=== PATIENT | female | born 1955 ===

== ENCOUNTER 2018-11-19 11:15 | Day surgery (SDC) | payer OTHER ==
[~2018-11-19] VITALS: Ht 180.3 cm; Wt 82.0 kg
[~2018-11-19 11:15] MED LIST: ALPR.5 PO; Allergy Medicat25 MG PO; MEGARED OMEGA-1 EAC1 PO; ROPI1 PO
[2018-11-19] MEDS ORDERED: MECL12.5 PO (11:41)
[2018-11-19] MEDS ORDERED: POTASSIUM99 MG (11:42)
--- NOTE | 2018-11-19 16:11 | NUR ---
PT LEFT GROIN SITE REMAINS STABLE, SOFT NON-TENDER, NO OOZING OR BLEEDING FROM SITE. CLEAR TEGADERM INTACT. PT VERBALIZED UNDERSTANDING OF D/C INSTRUCTIONS. IV REMOVED FROM RIGHT HAND WITH CATH INTACT. PRESSURE DRESSING APPLIED. PT GETS DRESSED WITH NO NEEDED ASSISTANCE. FRIEND ARRIVES TO DRIVE HER HOME. PAPERWORK PROVIDED IN DISCHARGE SECTION OF [facility]. PT TAKEN OUT TO VEHICLE VIA W/C WITH NADN. LEANNES.
[2018-11-25] MEDS ORDERED: CLEM1.34 PO (14:35)
== END 2018-11-19 16:15 | disposition home or self-care (01) ==
LOC: MHTC 11:15
DX: I70.201 Unspecified atherosclerosis of native arteries of extremities, right leg (principal); I10 Essential (primary) hypertension; F17.210 Nicotine dependence, cigarettes, uncomplicated
CPT/HCPCS: 37224; 37228; 75625; 75716; 75774; 99152; 99153; C1725; C1760; C1769; C1887; C1894; C2623; J1644; J2250; J2405; J3010; J7030; Q9967

== ENCOUNTER 2018-11-26 06:46 | Day surgery (SDC) | payer OTHER ==
[~2018-11-26] VITALS: Ht 180.3 cm; Wt 80.5 kg
[~2018-11-26 06:46] MED LIST changes: +CLEM1.34 PO; +MECL12.5 PO; +POTASSIUM99 MG
--- NOTE | 2018-11-26 09:18 | NUR ---
PT TO RECOVERY ROOM VIA BED POST PROCEDURE. REPORT FROM HERBER DILLARD. PT SLEEPING, VSS. CALL LIGHT IN REACH. RIGHT GROIN SITE SOFT, CDI, NO SWELLING NOTED.
--- NOTE | 2018-11-26 11:45 | NUR ---
PT AMBULATED TO THE BATHROOM WITHOUT DIIFCULTY. RIGHT GROIN SITE REMAINS CDI WITHOUT SWELLING OR PAIN WHILE AMBULATING.
--- NOTE | 2018-11-26 12:15 | NUR ---
IV DC'D, CATH INTACT. PT AND SISTER VERBALIZED UNDERSTANDING OF DC INSTRUCTIONS AND FOLLOW UP INFORMATION. RIGHT GROIN CDI, NO BRUISING OR SWELLING NOTED AT TIME OF DC HOME. OUT TO CAR VIA W/C.
== END 2018-11-26 14:04 | disposition home or self-care (01) ==
LOC: MHTC 06:46
DX: I70.202 Unspecified atherosclerosis of native arteries of extremities, left leg (principal); F17.210 Nicotine dependence, cigarettes, uncomplicated; G25.81 Restless legs syndrome; I10 Essential (primary) hypertension
CPT/HCPCS: 37225; 75716; 75774; 85347; 99152; 99153; C1714; C1760; C1769; C1884; C1887; C1894; C2623; J1644; J2250; J2405; J3010; J7030; Q9967

== ENCOUNTER 2019-04-16 10:52 | Day surgery (SDC) | payer OTHER ==
[~2019-04-16] VITALS: Ht 180.3 cm; Wt 82.8 kg
[~2019-04-16 10:52] MED LIST changes: +BENADRYL25 MG PO; +MOTION RELIEF25 MG PO; +Ropinirole HC0.25 MG PO; +[UNRECOGNIZED DRUG - OTHER] PO
--- NOTE | 2019-04-16 15:25 | NUR ---
04/16/19 1525 Jacek Riggins S LATE ENTRY-1425 PATIENT STATES SHE IS STILL DIZZY AND WOULD LIKE TO WAIT A FEW MORE MINUTES TO WAKE UP. DENIES PAIN, N/V AT THIS TIME. VSS
== END 2019-04-16 15:10 | disposition home or self-care (01) ==
LOC: ORSCSDS 10:52
PROVIDERS: Internal Medicine Gastroenterology
PROC: 0DBK8ZX Excision of Ascending Colon, Via Natural or Artificial Opening Endoscopic, Diagnostic (ICD-10-PCS; principal; 2019-04-16 12:00)
PROC: 0DBL8ZX Excision of Transverse Colon, Via Natural or Artificial Opening Endoscopic, Diagnostic (ICD-10-PCS; principal; 2019-04-16 12:00)
PROC: 0DBN8ZX Excision of Sigmoid Colon, Via Natural or Artificial Opening Endoscopic, Diagnostic (ICD-10-PCS; principal; 2019-04-16 12:00)
DX: Z12.11 Encounter for screening for malignant neoplasm of colon (principal); Z86.010 Personal history of colon polyps; Z80.0 Family history of malignant neoplasm of digestive organs; D12.3 Benign neoplasm of transverse colon; D12.2 Benign neoplasm of ascending colon; K63.5 Polyp of colon; K57.30 Diverticulosis of large intestine without perforation or abscess without bleeding; F17.210 Nicotine dependence, cigarettes, uncomplicated; Z79.899 Other long term (current) drug therapy
CPT/HCPCS: 88305; J2250; J3010; J7120

== ENCOUNTER 2019-08-08 06:32 | Day surgery (SDC) | payer OTHER ==
[~2019-08-08] VITALS: Ht 180.3 cm; Wt 83.0 kg
[~2019-08-08 06:32] MED LIST changes: +XARELTO10 MG PO
--- NOTE | 2019-08-08 11:52 | NUR ---
PT TOLERATES PORTILLO CATHETER PLACEMENT WELL. NADN. VSS. SITE REMAINS STABLE. CALL LIGHT WITHIN REACH.
--- NOTE | 2019-08-08 11:55 | NUR ---
DR. MINER HERE. ORDERS NOTED. PT NOT TOLERATING FENTANYL IV.
--- NOTE | 2019-08-08 13:03 | NUR ---
ZOFRAN 4 MG IV GIVEN FOR NAUSEA.
--- NOTE | 2019-08-08 13:17 | NUR ---
PT RESTING COMFORTABLY.
--- NOTE | 2019-08-08 13:45 | NUR ---
DR. MINER HERE. DOPPLER PULS NOW PRESENT DP/PT LEFT FOOT. TOES ARE PURPLE AND FOOT IS COOL SINCE POST PROCEDURE.
--- NOTE | 2019-08-08 14:00 | NUR ---
ADDITIONAL 100 ML TPA HUNG. INFUSING AT 25 ML/HR= 2MG/HR.
--- NOTE | 2019-08-08 14:16 | NUR ---
FENTANYL 50 MCG IV GEIVEN FOR 10/10 LEFT LEG PAIN
--- NOTE | 2019-08-08 15:15 | NUR ---
FENTANYL 25 MCG IV GIVEN FOR 10/10 LEFT LEG/CALF PAIN.
--- NOTE | 2019-08-08 15:15 | NUR ---
DP PULSE ABSENT WITH DOPPLER.PT DOPPLER PULSE PRESENT. INFORMATION GIVEN TO DR. MINER.
--- NOTE | 2019-08-08 15:35 | NUR ---
PATIENT RETURNED TO REFRIGERATED CARGO CLERK. REPORT GIVEN TO NISHANT VERDUZCO RN AND BENITO CASH RN.
--- NOTE | 2019-08-08 16:28 | NUR ---
pt returned from scientific laboratory supervisor with angioseal device in place. site stable at this time r fem.
--- NOTE | 2019-08-08 19:09 | NUR ---
PORTILLO CATHETER REMOVED, PT DRESSED, IV DC'D INTACT, PT WILL BE DC'D BY KINA Rdz FAMILY DRIVING PT HOME
--- NOTE | 2019-08-08 19:16 | NUR ---
PT DC'D BY KINA
== END 2019-08-08 19:15 | disposition home or self-care (01) ==
LOC: MHTC 06:32
DX: I70.212 Atherosclerosis of native arteries of extremities with intermittent claudication, left leg (principal); F17.210 Nicotine dependence, cigarettes, uncomplicated; F41.9 Anxiety disorder, unspecified; Z88.2 Allergy status to sulfonamides; Z88.5 Allergy status to narcotic agent; Z88.8 Allergy status to other drugs, medicaments and biological substances; Z79.899 Other long term (current) drug therapy
CPT/HCPCS: 37186; 37211; 37226; 37228; 37232; 75716; 75774; 99152; 99153; C1725; C1760; C1769; C1874; C1876; C1887; C1894; J1644; J2250; J2405; J2997; J3010; J7030; Q9967

== ENCOUNTER 2019-09-06 11:46 | Emergency (ER) | payer OTHER ==
[~2019-09-06] VITALS: Ht 180.3 cm; Wt 81.7 kg
[2019-09-06 12:30] LABS: BASOPHILS ABSOLUTE AUTO 0.04 K/mm3 (0.00-0.23); BASOPHILS PERCENT AUTO 1 % (0-2); EOSINOPHILS ABSOLUTE AUTO 0.07 K/mm3 (0.00-0.68); EOSINOPHILS PERCENT AUTO 1 % (0-6); Hematocrit 46.6 % (33.0-51.0); Hemoglobin 15.5 g/dL (11.5-16.0); IMMATURE GRAN ABSOLUTE AUTO 0.04 K/mm3 (0.00-0.10); IMMATURE GRAN PERCENT AUTO 1 % (0-1); LYMPHOCYTES ABSOLUTE AUTO 2.92 K/mm3 (0.84-5.20); LYMPHOCYTES PERCENT AUTO 34 % (21-46); MONOCYTES ABSOLUTE AUTO 0.56 K/mm3 (0.16-1.47); MONOCYTES PERCENT AUTO 7 % (4-13); Mean Corpuscular HGB 29.9 pg (26.0-34.0); Mean Corpuscular HGB Conc 33.3 g/dL (31.5-36.5); Mean Corpuscular Volume 90 fL (80-100); Mean Platelet Volume 9.8 fL (9.1-12.4); NEUTROPHILS PERCENT AUTO 58 % (41-73); Platelet Count 264 K/mm3 (150-400); RDW Coefficient Variation 13.9 % (11.7-14.2); RDW Standard Deviation 44.6 fL (35.1-46.3); Red Blood Cell Count 5.18 M/mm3 (3.80-5.20); White Blood Cell Count 8.63 K/mm3 (4.00-11.30)
[2019-09-06 12:50] LABS: Alanine Aminotransfer (ALT/SGP 57 U/L (12-78); Albumin, Blood 3.9 g/dL (3.4-5.0); Albumin/Globulin Ratio 0.9 (0.8-1.8); Alk Phos 85 U/L (50-136); Anion Gap 7 mmol/L (6-16); Aspartate Aminotrans (AST/SGOT 26 U/L (12-37); Bilirubin, Total 0.4 mg/dL (0.1-1.0); Blood Urea Nitrogen 15 mg/dL (8-24); CO2, Blood 26 mmol/L (21-32); Calcium, Blood 10.3 mg/dL (8.5-10.1); Chloride, Blood 107 mmol/L (98-108); Creatinine, Blood 0.58 mg/dL (0.40-1.00); Globulin, Blood 4.4 g/dL (2.2-4.0); Glomerular Filtration Rate >60 (60-); Glucose, Blood 105 mg/dL (70-99); Potassium, Blood 3.7 mmol/L (3.5-5.5); Sodium, Blood 140 mmol/L (136-145); Total Protein, Blood 8.3 g/dL (6.4-8.2)
[2019-09-06] MEDS ORDERED: XARELTO15 MG PO (12:52)
[2019-09-06] MEDS ORDERED: DIPH50 PO (12:59)
[2019-09-06] MEDS ORDERED: MOTION RELIEF25 MG PO (13:00)
[2019-09-06 13:05] LABS: Source, Urine Clean Catch
[2019-09-06 13:08] LABS: Bilirubin, Urine Neg (Neg); Blood, Urine Neg (Neg); Glucose Qualitative, Urine Neg (Neg); Ketones, Urine Neg (Neg); Leukocyte Esterase, Urine Neg (Neg); Nitrite, Urine Neg (Neg); Protein, Urine Neg (Neg); Specific Gravity, Urine 1.015 (1.003-1.022); Urobilinogen, Urine NORM (Normal)
[2019-09-06 13:17] LABS: Appearance, Urine Clear (Clear); Color, Urine Yellow (P-Yellow)
[2019-09-06] MEDS ORDERED: Xanax0.5 MG PO (13:51)
== END 2019-09-06 14:30 | disposition home or self-care (01) ==
LOC: ER 11:46
PROVIDERS: Emergency Medicine; Physician Assistant
DX: M47.814 Spondylosis without myelopathy or radiculopathy, thoracic region (principal); F17.200 Nicotine dependence, unspecified, uncomplicated; Z88.5 Allergy status to narcotic agent; Z88.2 Allergy status to sulfonamides; Z88.8 Allergy status to other drugs, medicaments and biological substances
CPT/HCPCS: 36415; 71046; 80053; 81003; 83690; 85025; 93005; 93010; 96361; 96374; 96375; 99284-25; J1885; J2405; J7030

== ENCOUNTER 2020-05-19 00:53 | Inpatient (IN) | payer OTHER ==
[~2020-05-19] VITALS: Ht 175.3 cm; Wt 74.4 kg
[~2020-05-19 00:53] MED LIST changes: +DIPH50 PO; +XARELTO15 MG PO; +Xanax0.5 MG PO
[2020-05-19] MEDS ORDERED: CLOP75 PO (01:07)
[2020-05-19] MEDS ORDERED: Ropinirole HCl0.5 MG PO (01:07)
[2020-05-19 01:47] LABS: BASOPHILS ABSOLUTE AUTO 0.02 K/mm3 (0.00-0.23); BASOPHILS PERCENT AUTO 0 % (0-2); EOSINOPHILS PERCENT AUTO 0 % (0-6); Hematocrit 47.9 % (33.0-51.0); Hemoglobin 15.7 g/dL (11.5-16.0); IMMATURE GRAN ABSOLUTE AUTO 0.03 K/mm3 (0.00-0.10); IMMATURE GRAN PERCENT AUTO 0 % (0-1); LYMPHOCYTES ABSOLUTE AUTO 0.95 K/mm3 (0.84-5.20); LYMPHOCYTES PERCENT AUTO 8 % (21-46); MONOCYTES ABSOLUTE AUTO 0.43 K/mm3 (0.16-1.47); MONOCYTES PERCENT AUTO 3 % (4-13); Mean Corpuscular HGB 29.8 pg (26.0-34.0); Mean Corpuscular HGB Conc 32.8 g/dL (31.5-36.5); Mean Corpuscular Volume 91 fL (80-100); NEUTROPHILS ABSOLUTE AUTO 11.09 K/mm3 (1.96-9.15); NEUTROPHILS PERCENT AUTO 89 % (41-73); Platelet Count 185 K/mm3 (150-400); RDW Coefficient Variation 13.3 % (11.7-14.2); RDW Standard Deviation 45.1 fL (35.1-46.3); Red Blood Cell Count 5.27 M/mm3 (3.80-5.20); White Blood Cell Count 12.52 K/mm3 (4.00-11.30)
[2020-05-19 01:53] LABS: Source, Urine Catheter
[2020-05-19 01:57] LABS: Appearance, Urine Clear (Clear); Bilirubin, Urine Neg (Neg); Blood, Urine Neg (Neg); Color, Urine Yellow (P-Yellow); Glucose Qualitative, Urine Neg (Neg); Ketones, Urine 1+ (Neg); Leukocyte Esterase, Urine Neg (Neg); Nitrite, Urine Neg (Neg); Protein, Urine Neg (Neg); Specific Gravity, Urine 1.025 (1.003-1.022); Urobilinogen, Urine 1+ (Normal)
[2020-05-19 02:01] LABS: International Normalized Ratio 1.02; Prothrombin Time Results 10.9 Sec (9.7-11.5)
[2020-05-19 02:05] LABS: Alanine Aminotransfer (ALT/SGP 29 U/L (12-78); Albumin, Blood 3.7 g/dL (3.4-5.0); Albumin/Globulin Ratio 0.9 (0.8-1.8); Alk Phos 89 U/L (50-136); Anion Gap 6 mmol/L (6-16); Aspartate Aminotrans (AST/SGOT 20 U/L (12-37); Bilirubin, Total 0.4 mg/dL (0.1-1.0); Blood Urea Nitrogen 20 mg/dL (8-24); Bun/Creatinine Ratio 24.3 (12.0-20.0); CO2, Blood 27 mmol/L (21-32); Calcium, Blood 9.8 mg/dL (8.5-10.1); Chloride, Blood 109 mmol/L (98-108); Creatinine, Blood 0.82 mg/dL (0.40-1.00); Globulin, Blood 4.2 g/dL (2.2-4.0); Glomerular Filtration Rate >60 (60-); Glucose, Blood 154 mg/dL (70-99); Sodium, Blood 142 mmol/L (136-145); Total Protein, Blood 7.9 g/dL (6.4-8.2)
[2020-05-19] MEDS ORDERED: DIPH50 PO (03:58)
--- NOTE | 2020-05-19 17:51 | NUR ---
SUMMARY PT DOZING THROUGHOUT DAY, REPORTS PAIN 9-10 WHEN AWAKE AND TRIES TO REPOSITION SELF. JOSÉ PO FLUIDS WITHOUT NUSEA, PT HAS DECLINED FOOD OTHER THAN CRACKERS STATESIT IS TOO HARD TO EAT WHILE LAYING DOWN. PT IS AWARE OF PLAN FOR NPO AFTER MIDNOC IN ANTICIPATION OF SURGERY ON 05/20/20
--- NOTE | 2020-05-19 18:17 | NUR ---
1525 COUGH LOOSE, MOIST SOUNDING COUGH BIOX 86-88%. ENCOURAGED TO COUGH AND DEEP BREATHE AND INSTRUCTED ON USE OF IS. BIOX INCREASED TO 95% AFTER THESE MEASURES. PT INSTRUCTED TO USE IS AT LEAST HOURLY FOR 10 REPETITIONS
--- NOTE | 2020-05-20 05:36 | NUR ---
SHIFT SUMMARY AA0X4. PT MEDICATED FOR PAIN PER EMAR. TOLERATES WELL, ABLE TO FALL ASLEEP. NO NAUSEA DURING SHIFT, MEDICATED WITH ZOFRAN WITH MEDS PER PT REPORT OF NAUSEA WITH MEDS. NPO SINCE MIDNIGHT PER ORDERS. IV FLUIDS INFUSING DURING SHIFT. PLAN IS FOR SURGERY TODAY. PT REPORTS PAIN LOCALIZED IN R HIP, REPOSITIONS WITH ASSISTANCE. PORTILLO PATENT AND DRAINING
--- NOTE | 2020-05-20 15:05 | NUR ---
PATIENT TO DAY SURGERY AT THIS TIME.
--- NOTE | 2020-05-20 15:28 | NUR ---
INTO SDS VIA BED FROM SURG ROOM. History, Chart, Medications and Allergies reviewed before start of procedure.Patient confirms NPO status and agrees with scheduled surgery. Surgical site prepped with 2% Chlorhexidine cloth wipe.WHEEZES BILATERAL UPPER LOBES DIMINSHED BILATERALLY AT THE BASES
--- NOTE | 2020-05-20 19:33 | NUR ---
BACK FROM SURGERY PT ARRIVED BACK TO FLOOR FROM PACU VIA OWN BED, PT DENIES PAIN AND IS MOANING THAT SHE HAS NEVER FELT BETTER. SHE IS ON ROOM AIR VITAL SIGNS STABLE. CURRENTLY LAYING FLAT IN BED AND STATES COMFORT. CALL LIGHT IS IN REACH AND PT IS AA0X4. SISTER WAS AT BEDSIDE AND HAS GONE HOME FOR THE NIGHT. WILL MONITOR PATIENT FOR PAIN AND ANY CHANGES. DRESSIGN CURRENTLY CDI.
--- NOTE | 2020-05-21 01:51 | NUR ---
PT REPORTS ATTEMPTING TO WIPE EYE WITH TISSUE, DURING SO SCRATCHED HER EYE. HAS BEEN UNABLE TO RELIEVE PAIN ASSOCIATED WITH SCRATCH AND CONTINUES TO RUB HER EYE. SPOKE TO HOSPITALIST REGARDING THIS AND RECIEVED ORDERS FOR EYE OINTMENT. WILL ADMINISTER AND CONTINUE TO MONITOR PATIENT FOR CHANGES IN LEVEL OF PAIN.
--- NOTE | 2020-05-21 04:57 | NUR ---
SHIFT SUMMARY POD 1 R KAUSHIK AA0X4, PT STATES SHE HAS NEVER FELT THIS GOOD BEFORE. SHE HAS BEEN RESTING IN BED COMFORTABLY. DENIES NAUSE, TOLERATES PO WELL. POLAR LISA IN PLACE ON HIP. PORTILLO PATENT AND DRAINING. DRESSING CDI. PLAN IS TO WORK WITH THERAPY TODAY.
[2020-05-21 06:02] LABS: BASOPHILS ABSOLUTE AUTO 0.01 K/mm3 (0.00-0.23); BASOPHILS PERCENT AUTO 0 % (0-2); EOSINOPHILS PERCENT AUTO 0 % (0-6); Hematocrit 39.6 % (33.0-51.0); Hemoglobin 12.8 g/dL (11.5-16.0); IMMATURE GRAN ABSOLUTE AUTO 0.07 K/mm3 (0.00-0.10); IMMATURE GRAN PERCENT AUTO 1 % (0-1); LYMPHOCYTES ABSOLUTE AUTO 1.25 K/mm3 (0.84-5.20); LYMPHOCYTES PERCENT AUTO 9 % (21-46); MONOCYTES ABSOLUTE AUTO 1.04 K/mm3 (0.16-1.47); MONOCYTES PERCENT AUTO 7 % (4-13); Mean Corpuscular HGB 30.1 pg (26.0-34.0); Mean Corpuscular HGB Conc 32.3 g/dL (31.5-36.5); Mean Corpuscular Volume 93 fL (80-100); Mean Platelet Volume 10.4 fL (9.1-12.4); NEUTROPHILS ABSOLUTE AUTO 12.36 K/mm3 (1.96-9.15); NEUTROPHILS PERCENT AUTO 84 % (41-73); Platelet Count 150 K/mm3 (150-400); RDW Coefficient Variation 13.2 % (11.7-14.2); RDW Standard Deviation 45.6 fL (35.1-46.3); Red Blood Cell Count 4.25 M/mm3 (3.80-5.20); White Blood Cell Count 14.73 K/mm3 (4.00-11.30)
[2020-05-21 06:18] LABS: Anion Gap 4 mmol/L (6-16); Blood Urea Nitrogen 19 mg/dL (8-24); Bun/Creatinine Ratio 27.3 (12.0-20.0); CO2, Blood 29 mmol/L (21-32); Calcium, Blood 8.5 mg/dL (8.5-10.1); Chloride, Blood 108 mmol/L (98-108); Glomerular Filtration Rate >60 (60-); Glucose, Blood 116 mg/dL (70-99); Potassium, Blood 4.5 mmol/L (3.5-5.5); Sodium, Blood 141 mmol/L (136-145)
--- NOTE | 2020-05-21 17:37 | NUR ---
SHIFT SUMMARY PATIENT CONT TO RATE PAIN HIGH, YET APPEARS COMFORTABLE AND TALKATIVE. REFUSING PO PAIN MED OTHER THAN PO MORPHINE. UP TO AMBULATE IN [place] TODAY AND SIT IN CHAIR, TOLERATED WELL. VOIDING W/O DIFFICULTY AFTER FC D/C'D TODAY. TOLERATING DIET. DRESSING TO R HIP D&I. TENTATIVE PLAN TO D/C HOME THIS WEEKEND.
--- NOTE | 2020-05-21 17:42 | NUR ---
PATIENT HAS BEEN W/O C/O SINCE TRANSFER TO UNIT. PLEASANT AND TALKATIVE. BC GIVEN. TELE IN PLACE, SR @ 67 PER BRINE MIXER OPERATOR. CONT TO MONITOR. PLAN FOR D/C TO FACILITY IN [place] ON SUNDAY.
--- NOTE | 2020-05-22 04:14 | NUR ---
SHIFT SUMMARY PT IS A/O X4, HAS NEEDED SBA TO GET UP TO BATHROOM. PT TOLERATING PO INTAKE, VOIDING, AND AMBULATING WITH FWW AND GAIT BELT. PAIN MANAGED WITH MORPHINE PER ORDERS. POLAR PACK IN PLACE T/O THE NIGHT. NO ACUTE CHANGES OVERNIGHT. CORY CDI.
--- NOTE | 2020-05-22 17:38 | NUR ---
Shift summary Patient is a one person assist with FWW. Dressing CDI. VSS. Pain controlled with Roxinol and scheduled Tylenol. Cryotherapy to RLE. Patient likely to discharge home with home health tomorrow.
--- NOTE | 2020-05-23 04:09 | NUR ---
SHIFT SUMMARY PT A/O X4, SBA WITH FWW TO BATHROOM. TOLERATING PO INTAKE AND VOIDING. PAIN MANAGED WITH ROXANOL PER ORDERS. PT AMBULATING. DRESSING CDI. POLAR PACK PROVIDED DURING SHIFT. NO ACUTE CHANGES OVERNIGHT.
[2020-05-23] MEDS ORDERED: DOCU100 PO (11:26)
[2020-05-23] MEDS ORDERED: ACET500 PO (11:26)
[2020-05-23] MEDS ORDERED: PARO10 PO (11:26)
--- NOTE | 2020-05-23 13:12 | NUR ---
Discharge summary Patient discharged to home. Home health to follow up with patient. IV out. Tele off. Prescription for FWW and BSC given to patient. Discharge instructions given, explained and signed. Patient to follow up with ortho and PCP. Patient denied questions or concerns at discharge. Patient left hospital via wheelchair escort.
--- NOTE | 2020-05-24 10:05 | NUR ---
05/24/20 1005 Papst,Manny D VERIFICATION: ADING ITEM AND FINISHING CHARTING OF IMPLANTS
== END 2020-05-23 13:00 | disposition home health service (06) | DRG 470 ==
LOC: ER 00:53 → SURS 03:32
PROVIDERS: Emergency Medicine; Orthopaedic Surgery; ADMIT Internal Medicine
PROC: 0SR9049 Replacement of Right Hip Joint with Ceramic on Polyethylene Synthetic Substitute, Cemented, Open Approach (ICD-10-PCS; principal; 2020-05-20 15:15)
DX: S72.001A Fracture of unspecified part of neck of right femur, initial encounter for closed fracture (principal); W19.XXXA Unspecified fall, initial encounter; Z20.828 Contact with and (suspected) exposure to other viral communicable diseases; I73.9 Peripheral vascular disease, unspecified; J43.9 Emphysema, unspecified; F41.9 Anxiety disorder, unspecified; F32.9 Major depressive disorder, single episode, unspecified; G25.81 Restless legs syndrome; F17.210 Nicotine dependence, cigarettes, uncomplicated; Z79.02 Long term (current) use of antithrombotics/antiplatelets
CPT/HCPCS: 36415; 51702; 71045; 72170; 73502; 80048; 80053; 81003; 85025; 85610; 88305; 88311; 93005; 93010; 94760; 96374-59; 96375-59; 97110; 97116; 97162; 97165; 97530; 97535; 99285-25; C1713; C1776; J0171; J0690; J0735; J1100; J1885; J2250; J2270; J2370; J2405; J2704; J2795; J3010; J7030; J7120; Q0163; U0002

== ENCOUNTER 2022-11-08 11:43 | Day surgery (SDC) | payer OTHER ==
[~2022-11-08] VITALS: Ht 180.3 cm; Wt 73.4 kg
[~2022-11-08 11:43] MED LIST changes: +ACET500 PO; +CLOP75 PO; +DOCU100 PO; +PARO10 PO; +Ropinirole HCl0.5 MG PO
[2022-11-08] MEDS ORDERED: FISH OIL 1,2001 EAC7 (12:05)
[2022-11-08] MEDS ORDERED: MECL25 (12:06)
[2022-11-08] MEDS ORDERED: POTA8 (12:06)
[2022-11-08] MEDS ORDERED: PARO30 (12:06)
[2022-11-08] MEDS ORDERED: EZET10 (12:14)
--- NOTE | 2022-11-08 14:51 | NUR ---
11/08/22 1451 STEPHANIE PACHECO PT WANTING TO JUST SLEEP LONGER. INSTRUCTED TO HAVE PT TO SIT ON SIDE OF THE BED AND DANGLE FEET/PER DR. KING. DR. KING CAME IN TO SEE PT. BP IS STABLE, BUT C/O BEING DIZZY. DR. KING REQUESTED THAT WE KEEP HER LONGER UNTIL SHE FEELS BETTER. PT TAKEN TO SDU 1. SHE IS SITTING IN RECLINER, GLASSES ON, USING CELL PHONE. SHE TOLERATES ICE WATER. DECLINES FOOD. PT STATES THAT SHE IS DOING MUCH BETTER NOW THAT LAST TIME. VERY PLEASED WITH DR. KING
== END 2022-11-08 15:00 | disposition home or self-care (01) ==
LOC: ORSCSDS 11:43
PROVIDERS: Internal Medicine Gastroenterology
PROC: 0DBL8ZX Excision of Transverse Colon, Via Natural or Artificial Opening Endoscopic, Diagnostic (ICD-10-PCS; principal; 2022-11-08 13:00)
PROC: 0DBK8ZX Excision of Ascending Colon, Via Natural or Artificial Opening Endoscopic, Diagnostic (ICD-10-PCS; principal; 2022-11-08 13:00)
DX: Z12.11 Encounter for screening for malignant neoplasm of colon (principal); D12.3 Benign neoplasm of transverse colon; D37.4 Neoplasm of uncertain behavior of colon; Z86.010 Personal history of colon polyps; Z80.0 Family history of malignant neoplasm of digestive organs; J44.9 Chronic obstructive pulmonary disease, unspecified; I73.9 Peripheral vascular disease, unspecified; G25.81 Restless legs syndrome; F32.A Depression, unspecified; F17.210 Nicotine dependence, cigarettes, uncomplicated; Z79.899 Other long term (current) drug therapy
CPT/HCPCS: 88305; J2704; J7120